=== PATIENT | female | born 1955 | race Caucasian/White ===

== ENCOUNTER 2018-02-07 11:45 | Outpatient (REF) | payer SELFPAY | END 2018-02-07 11:46 | LOC: OM 11:45 | PROVIDERS: Visit Provider Nurse Practitioner Family | DX: Z23 Encounter for immunization (principal) ==

== ENCOUNTER 2018-06-09 14:17 | Emergency (ER) | payer OTHER, SELFPAY ==
[2018-06-09 14:46] VITALS: BP 159/95; PULSE 64; RESP 16; TEMP 36.8; O2SAT 95
--- NOTE | 2018-06-09 15:04 | ED.GENADUL_ITS ---
Discharge Plan Disposition Patient Disposition: HOME Condition: Fair Discharge Details Chief Complaint: DentalOral Clinical Impression: Dental infection Primary Care Provider: None,None ED Provider: Seema Marti Home Meds and New Rx's Prescriptions: No Action No Known Home Meds RF: 0 Discharge Instructions Instructions: Dental Abscess (ED) Additional Instructions: Encourage hydration. Tylenol and/or ibuprofen as needed for discomfort. Penicillin has been called into pharmacy here. Please monitor for new or worsening symptoms including swelling, discharge, fevers or chills, increased pain. If these arise please seek care urgently once again. Otherwise, please follow-up with dentist for definitive care Medical Decision Making Patient is a 62-year-old female presents today with chief complaint of right upper dental pain. She reports the pain began insidiously last night. States that she has had multiple dental caries historically, sees dentist regularly. Reports the area of discomfort is where she had extraction of the summer. Denies any recent illness. Denies any fevers or chills. Has been using ibupr ofen to help with discomfort. Pain radiates up into the right cheek. Denies any sinus drainage or discomfort. Denies any difficulty swallowing On exam, patient is point tender along the buccal side of the #1 tooth. No pain with palpation of the lingual side. No area of fluctuance to suggest possible abscess would require drainage. Posterior oropharynx is without abnormality. No trismus. No swelling of the tongue. Patient diagnosed with dental infection. Will be treated with penicillin VK. No recent antibiotics. Encourage hydration. Advised she may continue with Tylenol and/or ibuprofen as needed for discomfort. We discussed new/worsening symptoms and when to seek care urgently once again. All of her questions and concerns were addressed she is in agreement this plan. She will call her dentist on Tuesday to schedule follow-up appointment HPI General Mode of arrival: ambulatory . Date/Time Provider Initiated Documentation: 06/09/18 14:29 . Limitations to Documentation: no limitations . Information obtained by: patient . History of Present Illness 62 year old F presents to the emergency department with the chief complaint of right upper dental pain, described as moderate, Quality is described as aching, and is localized to the mouth. Patient proximal (into right cheek). Patient started experiencing this day(s) (1) and it has been constant. No relieving factors improve symptom(s), No exacerbating factors reported . Patient notes denies cough, fever/chills, headaches, nausea/vomiting and rash. Patient did receive the following treatments prior to arrival, NSAID Related Data Home Medications Medication Instructions Recorded Confirmed Unknown [No Known Home Meds] 06/09/18 06/09/18 Allergies Allergy/AdvReac Type Severity Reaction Status Date / Time No Known Allergies Allergy Unverified 06/09/18 14:50 General Stated Complaint: DentalOral MERI: 4 Review of Systems Constitutional Reports as per HPI, Denies chills, Denies fatigue, Denies fever(s), Denies headache(s) and Denies poor appetite Eyes Denies change in vision and Denies irritation ENT Reports as per HPI, Reports dental pain, Denies dysphagia, Reports facial pain, Denies headache(s), Denies lip swelling, Denies odynophagia, Denies sinus pain, Denies sinus pressure, Denies sore throat and Denies throat swelling Cardiovascular Reports as per HPI and Denies chest pain Respiratory Reports as per HPI and Denies cough Gastrointestinal Reports as per HPI, Denies dysphagia, Denies nausea, Denies odynophagia and Denies vomiting Integumentary/Breasts Reports as per HPI, Denies erythema, Denies rash and Denies skin pain Neurologic Denies headache(s) Endocrine Denies fatigue Allergic/Immunologic Denies lip swelling and Denies throat swelling [facility], [facility] Social History Smoking/Tobacco Use Status: Never Exam Const General: cooperative, healthy appearing, comfortable, no acute distress, well developed and well groomed Nutritional Appearance: average body habitus and well nourished Orientation: alert and awake [facility] Head: normal to inspection, normocephalic and atraumatic Ears: hearing grossly normal bilaterally, external ears normal and TM's normal bilaterally General nose exam: external nose normal and nares normal Face and sinus: normal facial exam, sinuses nontender and face symmetric Mouth: oral mucosae normal, tongue normal, oropharynx normal, moist mucous membranes, no muffled voice and no trismus Teeth and gingiva: abnormal dentition (patient has pain along the buccal surface of the #1 tooth. Erythematous) Throat: posterior oropharynx normal, tonsils normal and uvula midline Eyes General: appearance normal, both eyes and all related structures Neck Neck: normal visual inspection, full ROM, no lymphadenopathy, supple and no anterior neck swelling Resp Effort & Inspection: normal respiratory effort, able to speak in complete sentences and no respiratory distress Auscultation: clear to auscultation bilaterally, no rales, no rhonchi and no wheezes Cardio Rate: regular rate Rhythm: regular rhythm Heart Sounds: S1 normal and S2 normal Skin General skin exam: no rashes or lesions noted Trauma: no lacerations or abrasions Neuro General: alert and awake Cognition: normal cognition Speech: speech normal Gait: normal gait Psych Appearance: grossly normal and well kempt Mental Status: mental status grossly normal Speech and Movement: speech and movement normal Course Vital Signs Temperature 36.8 C 06/09/18 14:46 Pulse 64 06/09/18 14:46 Respiratory Rate 16 06/09/18 14:46 Blood Pressure 159/95 H 06/09/18 14:46 Pulse Oximetry 95 06/09/18 14:46 Temperature 36.8 C 06/09/18 14:46 Temperature Source Skin 06/09/18 14:46 Pulse 64 06/09/18 14:46 Respiratory Rate 16 06/09/18 14:46 Respiratory Effort 06/09/18 14:49 Blood Pressure 159/95 H 06/09/18 14:46 Blood Pressure Position Sitting 06/09/18 14:46 Pulse Oximetry 95 06/09/18 14:46 Oxygen Delivery Method Room Air 06/09/18 14:46 Oxygen Flow Rate 0 06/09/18 14:46 Pain Level 6 06/09/18 14:46 Comment 06/09/18 14:46
== END 2018-06-09 15:16 | disposition home or self-care (01) ==
PROVIDERS: Emergency Provider Physician Assistant
DX: K04.7 Periapical abscess without sinus (principal)
CPT/HCPCS: 99283

== ENCOUNTER 2018-07-19 02:26 | Outpatient (CLI) | payer OTHER, SELFPAY ==
[2018-07-19 13:58] LABS: ALT 31 U/L (12-78); AST 17 U/L (15-37); Albumin 3.9 g/dL (3.4-5.0); Alkaline Phosphatase 69 U/L (46-116); Anion Gap 7.9 mmol/L (3-11); BUN 16 mg/dL (7-18); Bilirubin, Total 0.7 mg/dL (0.2-1.0); CO2 29.1 mmol/L (21.0-32.0); CREATININE 0.87 mg/dL (0.55-1.02); Calcium 9.5 mg/dL (8.5-10.1); Chloride 102 mmol/L (98-107); Cholesterol 260 mg/dL (50-200); Glucose 103 mg/dL (70-100); HDL Cholesterol 80 mg/dL (40-60); Sodium 139 mmol/L (136-145); TSH 1.77 uIU/mL (0.358-3.74); Total Protein 7.1 g/dL (6.4-8.2); Triglyceride 52 mg/dL (30-150)
[2018-07-19 14:09] LABS: LDL CHOLESTEROL 166 mg/dL (<100)
[2018-07-19 14:54] LABS: FREE T4 0.95 ng/dL (0.76-1.46)
== END 2018-07-19 02:46 ==
PROVIDERS: PCP Nurse Practitioner Family; Visit Provider Nurse Practitioner Family
DX: E78.5 Hyperlipidemia, unspecified (principal)
CPT/HCPCS: 36415; 80053; 80061; 83721; 84439; 84443

== ENCOUNTER 2018-07-27 10:52 | Outpatient (REF) | payer OTHER, SELFPAY ==
--- NOTE | 2018-07-27 09:00 | PAPFT_PTH ---
PATIENT: MENA ARTIS LOC: [id number] U#:[id number] AGE/SX: 62/F ROOM: RE07/27/[address]: SHELLIE Guerrero : 1955 BED: DIS: 07/27/2018 SPEC #: [id number] RECD: 07/27/18 12:36 STATUS: PATRIA PETERSON #: [id number] DOUG: 07/27/18 09:[address]: Estella Monroy DEPT: [facility] Cytology RECD BY: Harriett Marie Tissues: 1 - CX/ENDOCX FOR PAP SMEARS Procedures: PAP THIN PREP/[facility] Screening HPV DNA PROBE Comments: [id number]
== END 2018-07-27 11:12 ==
LOC: LBN 10:52
PROVIDERS: PCP Nurse Practitioner Family; Visit Provider Nurse Practitioner Family
DX: Z12.4 Encounter for screening for malignant neoplasm of cervix (principal); Z11.51 Encounter for screening for human papillomavirus (HPV)
CPT/HCPCS: 88142; 87624